=== PATIENT | female | born 2000 | race Caucasian/White ===

== ENCOUNTER 2020-07-12 20:33 | Inpatient (IN) ==
[2020-07-12 19:09] LABS: Basophils # 0.1 K/mcL (0.0-0.2); Basophils % 0.7 %; Eosinophils % 0.1 %; Hematocrit 39.5 % (35.3-44.9); Hemoglobin 13.4 g/dL (11.5-15.4); Immature Granulocytes % 1.7 % (0-4); Lymphocytes # 1.7 K/mcL (0.6-4.6); Lymphocytes % 12.7 %; Mean Corpuscular HGB Conc 33.9 g/dL (31.6-35.5); Mean Corpuscular Volume 91.4 fL (83.0-100.0); Mean Platelet Volume 10.3 fL (9.4-12.4); Monocytes # 0.8 K/mcL (0.0-1.3); Monocytes % 6.2 %; Neutrophils # 10.3 K/mcL (1.6-8.9); Platelet Count 221 K/mcL (140-400); Red Blood Count 4.32 M/mcL (3.82-4.97); Red Cell Distribution Width 12.4 % (11.5-14.5); Segmented Neutrophils % 78.6 %; White Blood Count 13.2 K/mcL (4.3-11.1)
[2020-07-12 19:19] LABS: Amphetamine Screen,Urine Negative ng/mL (Cutoff=1000); Barbiturate Screen,Urine Negative ng/mL (Cutoff=200); Benzodiazepines Screen,Urine Negative ng/mL (Cutoff=200); Cannabinoid Screen,Urine Negative ng/mL (Cutoff = 50); Cocaine Screen,Urine Negative ng/mL (Cutoff= 300); Opiate Screen,Urine Negative ng/mL (Cutoff=300); Phencyclidine Screen,Urine Negative ng/mL (Cutoff=25)
[~2020-07-12 20:33] MED LIST: *HR* Nalbuphine 10 MG/ML AMPUL IV PRN; Famotidine 20 MG/2 ML VIAL IVP PRN; Metoclopramide 10 MG/2 ML VIAL IVP PRN; Naloxone 0.4 MG/ML INJ IVP PRN; Ondansetron 4 MG/2 ML VIAL IVP PRN; Ringers Solution, Lactated 1,000 ML IVC SCH
[2020-07-12 20:42] LABS: Influenza A PCR Negative (Negative); Influenza B PCR Negative (Negative); Resp. Syncytial Virus PCR Negative (Negative)
[2020-07-12 20:47] LABS: SARS-CoV-2 by PCR (In House) Negative (Negative)
[2020-07-13] MEDS ORDERED: Ibuprofen 600 MG TABLET PO PRN (03:39)
[2020-07-13] MEDS ORDERED: Acetaminophen 325 MG TABLET PO PRN (03:39)
[2020-07-13] MEDS ORDERED: Oxytocin 20 units/ LR 1000 mL 20 UNIT/1,000 ML BAG IVC SCH (03:39)
[2020-07-13] MEDS ORDERED: Benzocaine/Menthol 56 GM AEROSOL SPRAY TP PRN (03:39)
[2020-07-13] MEDS ORDERED: *HR* HYDROcodone/Acet 5/325 mg TABLET PO PRN (03:39)
[2020-07-13] MEDS ORDERED: Lanolin 7 G OINT...G. TP PRN (03:39)
[2020-07-13] MEDS ORDERED: Benzocaine/Menthol 56 GM AEROSOL SPRAY TP ONE (03:49)
[2020-07-13] MEDS: Prenatal Vit/FA 1 EACH TABLET PO SCH (08:25)
[2020-07-14 07:56] VITALS: BP 106/74
[2020-07-14] MEDS: Prenatal Vit/FA 1 EACH TABLET PO SCH (09:13)
== END 2020-07-14 11:00 | disposition home or self-care (01) | DRG 807 ==
LOC: 1NENULAB → 1NENUOBS 07-13 05:49
PROVIDERS: ADMIT Advanced Practice Midwife; ATTEND Advanced Practice Midwife